=== PATIENT | female | born 1995 | race Caucasian/White ===

== ENCOUNTER 2016-03-14 09:10 | Observation (INO) ==
[2016-03-14] MEDS ORDERED: Famotidine 20 MG/2 ML VIAL IVP PRN (09:22)
[2016-03-14] MEDS ORDERED: Betamethasone Acet/SodPhos 6 MG/ML MDV IM STA (09:22)
[2016-03-14] MEDS ORDERED: Ringers Solution, Lactated 1,000 ML ONE (09:27)
[2016-03-14] MEDS ORDERED: Ringers Solution, Lactated 1,000 ML IVC SCH (09:30)
--- NOTE | 2016-03-14 09:35 | OB/GYN History & Physical ---
Date of Encounter: 03/14/16 Time of Encounter: 09:31 Assessment and Plan (1) Anhydramnios in third trimester Current visit: Yes Status: Acute Transfer to [facility] for anticipated delivery. [facility] IM now. CBC. IV LR 125ml/hr. Qualifiers: Fetus number: single or unspecified fetus Qualified Code(s): O41.03X0 - Oligohydramnios, third trimester, not applicable or unspecified (2) IUGR (intrauterine growth restriction) affecting care of mother Current visit: Yes Status: Acute Qualifiers: Fetus number: single or unspecified fetus Trimester: third trimester Qualified Code(s): O36.5930 - Maternal care for other known or suspected poor growth, third trimester, not applicable or unspecified (3) 32 weeks gestation of Current visit: Yes Status: Acute History of Present Illness Chief complaint: Anhydramnios, IUGR HPI: Ms. Herrera is a 21 year old female presenting at 32w2d from office. She was seen for growth US today for S<D and found to have anhydramnios and IUGR with EFW 1lb 10oz (6 week growth lag). Her has been otherwise uncomplicated. Her blood type is O positive. Serologies negative. Rubella immune. Normal 3 our GTT, negative latex allergy eval. She does admit to infrequent movement recently and constant vaginal moisture. Past Med Surg Social Fam HX - Past Medical History Medical history: no medical history Psychiatric history: anxiety, depression - Past Surgical History Surgical History: no surgical history - Social History Smoking Status: Current every day smoker Smokeless Tobacco Status: No Alcohol use: none Drug use: none Obstetrical History - Pregnancies : 1 Para: 0 Medications and Allergies Pnv95/Ferrous Fumarate/FA [ Caplet] 1 each PO DAILY #30 tablet 09/04/15 [Rx] Allergies Penicillins Allergy (Verified 11/22/15 00:02) See Comments Review of System OB All systems PM: reviewed and no additional remarkable complaints except as stated Exam - Constitutional Constitutional: well developed, well nourished, no acute distress, obese - HEENT HEENT: Mucus Membranes Moist - Neck Neck exam: normal inspection - Lungs Respiratory exam: CTAB - Cardiovascular Cardiovascular exam: RRR, +S1, +S2 - Breasts Breast: bilateral: normal - Abdomen Abdomen: Present: gravid, non tender - Extremities Extremities exam: normal inspection - Anus/Rectum Anus/Rectum: Present: normal perianal skin Results All other labs normal. - VTE Reasons for not Prescribing Prophylaxis: Treatment not Indicated - Low risk for VTE
[2016-03-14 09:36] LABS: Basophils # 0.1 K/mcL (0.0-0.2); Basophils % 0.4 %; Eosinophils # 0.2 K/mcL (0.0-0.6); Eosinophils % 1.1 %; Hematocrit 40.4 % (35.3-44.9); Hemoglobin 14.1 g/dL (11.5-15.4); Immature Granulocytes % 0.7 % (0-4); Lymphocytes # 4.4 K/mcL (0.6-4.6); Lymphocytes % 22.1 %; Mean Corpuscular HGB Conc 34.9 g/dL (31.6-35.5); Mean Corpuscular Hemoglobin 31.3 pg (28.0-33.3); Mean Corpuscular Volume 89.6 fL (83.0-100.0); Mean Platelet Volume 10.7 fL (9.4-12.4); Monocytes # 1.5 K/mcL (0.0-1.3); Monocytes % 7.7 %; Neutrophils # 13.6 K/mcL (1.6-8.9); Platelet Count 254 K/mcL (140-400); Red Blood Count 4.51 M/mcL (3.82-4.97); Red Cell Distribution Width 12.6 % (11.5-14.5)
== END 2016-03-14 09:50 | disposition other institution (70) ==
LOC: 1NENULAB
PROVIDERS: ADMIT Obstetrics & Gynecology; ATTEND Obstetrics & Gynecology